=== PATIENT | female | born 1975 | race Two or more races ===

== ENCOUNTER → 2016-10-05 | Outpatient (REF) | payer OTHER ==
[2016-10-05 20:16] LABS: MEAN CORPUSCULAR HEMOGLOBIN 30.8 pg (27.0-33.0); MEAN CORPUSCULAR VOLUME 90.5 fl (80.0-96.0); RED CELL DISTRIBUTION WIDTH 12.3 % (11.5-14.5); WHITE BLOOD COUNT 6.1 K/mm3 (4.0-10.0)
[2016-10-05 20:43] LABS: ALBUMIN 4.2 GM/DL (3.2-5.2); ALBUMIN/GLOBULIN RATIO 1.11 (1.00-1.93); ALKALINE PHOSPHATASE 54 U/L (45-117); ALT/SGPT 16 U/L (12-78); ANION GAP 8 MEQ/L (8-16); AST/SGOT 11 U/L (15-37); BLOOD UREA NITROGEN 8 MG/DL (7-18); CALCIUM LEVEL 8.8 MG/DL (8.5-10.1); CARBON DIOXIDE LEVEL 28 MEQ/L (21-32); CHLORIDE LEVEL 105 MEQ/L (98-107); CHOLESTEROL LEVEL 179 MG/DL (<200); CREATININE FOR GFR 0.67 MG/DL (0.55-1.02); FREE T4 1.21 NG/DL (0.76-1.46); GLOMERULAR FILTRATION RATE > 60.0 (>58); GLUCOSE, FASTING 86 MG/DL (70-105); POTASSIUM SERUM 3.9 MEQ/L (3.5-5.1); SODIUM LEVEL 141 MEQ/L (136-145); TRIGLYCERIDES LEVEL 44 MG/DL (<150)
== END ==
LOC: M SFHCLERA 10:55
PROVIDERS: ATTEND Family Medicine
DX: F41.9 Anxiety disorder, unspecified (principal); Z82.49 Family history of ischemic heart disease and other diseases of the circulatory system; Z13.220 Encounter for screening for lipoid disorders; R35.0 Frequency of micturition; R94.31 Abnormal electrocardiogram [ECG] [EKG]
CPT/HCPCS: 80053; 80061; 81001; 83036; 83735; 84439; 84443; 85027; 87086; 93005; G0463

== ENCOUNTER → 2016-10-10 | Outpatient (REF) | payer OTHER | LOC: M SFHCLERA 14:15 | PROVIDERS: ATTEND Family Medicine | DX: R39.9 Unspecified symptoms and signs involving the genitourinary system (principal) ==

== ENCOUNTER → 2016-10-13 | Outpatient (CLI) | payer OTHER ==
--- NOTE | 2016-10-14 11:46 | ECHO ---
DATE OF STUDY: 10/13/2016 REFERRING PHYSICIAN: Dr. Modesto Menendez INDICATION: Abnormal EKG. HEIGHT: 158 cm WEIGHT: 73 kilograms MEASUREMENTS: Left atrium: 3.2 cm Ventricular septum: 1.04 cm Posterior wall: 1.02 cm Left ventricle diastole: 4.3 cm Proximal ascending aorta: 3.1 cm LVOT: 2.2 cm Aortic root: 3.2 cm Inferior vena cava: 1.3 cm DOPPLER MEASUREMENTS: Moderate aortic regurgitation. No aortic stenosis. Aortic valve velocity: 132 cm/s LVOT velocity: 85.0 cm/s Aortic regurgitation pressure half time 383 milliseconds. Moderate mitral regurgitation. Mitral E velocity: 67.6 cm/s Mitral A velocity: 62.2 cm/s Mitral deceleration time 180 milliseconds. Mild tricuspid regurgitation. Estimated right ventricle systolic pressure: 34 mmHg by pulmonary acceleration time method MITRAL ANNULAR TISSUE DOPPLER: E prime septal: 11.3 cm/s E prime lateral: 16.0 cm/s DESCRIPTION: Rhythm was sinus. Image quality was fair. No pericardial effusion. This was a 2D, M-mode, color flow Doppler, and pulse wave Doppler examination and included mitral annular tissue Doppler. CONCLUSIONS: 1. Mild aortic valve sclerosis of a three-cusp aortic valve. Moderate aortic regurgitation. 2. Mild mitral annular calcification. Moderate mitral regurgitation. 3. Normal left ventricle size and wall thickness. Normal left ventricle (LV) wall motion and wall thickening. Normal LV systolic functioning. Left ventricular ejection fraction (LVEF) 65% by visual estimate. Normal LV diastolic dysfunction. 4. Suggestive of mild evaluation of estimated right ventricular systolic pressure.
--- NOTE | 2016-10-19 17:22 | HOLTMON ---
[facility] Test Date: 2016-10-13 Pat Name: TAWNYA KERN Department: Room: - Gender: Family Practice Physician: RAQUEL RAYMOND/Leta : 1975 Requested By: JUAN BARKLEY Order Number: [id number] Reading MD: Noel Chapa Interpretive Statements Underlying sinus rhythm with rate varying between 45 bpm at 6:53 AM and 130 bpm at 3:31 PM, averaging 72 bpm. Rare isolated PACs (averaging less than 2 per hour) and no PSVT. Frequent isolated PVCs (averaging 267 per hour), extremely rare couplets but no ventricular tachycardia. Reported palpitations and shortness of breath at 12:44 AM did not correlate with any change in her underlying rhythm (sinus at 85 bpm with isolated PVCs). Reported shortness of breath, tired and dizzy at 2:05 PM, similarly correlated with sinus rhythm at 74 bpm and occasional to frequent isolated PVCs. Reported palpitations at 4:59 PM, 6:29 PM and 7:59 PM correlated with sinus rhythm/sinus tachycardia with rate 74 to 108 bpm. Electronically Signed On 10-19-2016 17:22:36 EST by Noel Chapa
== END ==
LOC: M CARPUL 15:31
PROVIDERS: ATTEND Family Medicine
DX: Z82.49 Family history of ischemic heart disease and other diseases of the circulatory system (principal); R94.31 Abnormal electrocardiogram [ECG] [EKG]